=== PATIENT | male | born 1990 | race Caucasian/White ===

== ENCOUNTER 2021-06-16 05:26 | Emergency (ER) | payer OTHER ==
[2021-06-16] MEDS ORDERED: Morphine 4 MG/ML VIAL ONE ×3 (06:21→10:38)
[2021-06-16 06:36] LABS: Band 2 % (5-11); Hemoglobin 12.2 g/dL (14.0-18.0); Lymphocytes 7 % (21-51); MDiff Complete? YES; Mean Corpuscular HGB CONC 31.3 g/dL (32.0-36.0); Mean Corpuscular Volume 76.8 fL (78.0-98.0); Mean Platelet Volume 5.5 fL (7.4-10.4); Microcytosis SLIGHT = 6-15 cells (100X) (0-5/hpf); Monocytes 6 % (0-10); Neutrophil 85 % (42-75); Platelet Count 382 thou/uL (130-400); RBC Distribution Width 12.8 % (11.5-14.5); Red Blood Cell (RBC) Count 5.08 mill/uL (4.70-6.10); White Blood Cell (WBC) Count 29.7 thou/uL (4.8-10.8)
[2021-06-16 06:39] LABS: ALT (SGPT) 38 U/L (8-55); AST (SGOT) 21 U/L (5-34); Albumin 3.7 g/dL (3.5-5.0); Alkaline Phosphatase 63 U/L (40-110); Anion Gap 14 mmol/L (10-20); BUN (Urea Nitrogen) 11 mg/dL (8.9-20.6); Bilirubin, Total 0.4 mg/dL (0.2-1.2); Calc. Creatinine Clearance 0 mL/min (70-130); Calcium 8.7 mg/dL (7.8-10.44); Carbon Dioxide 27 mmol/L (22-29); Chloride 101 mmol/L (98-107); Globulin 2.5 g/dL (2.4-3.5); Glucose 98 mg/dL (70-105); Lipase 351 U/L (8-78); Potassium 3.7 mmol/L (3.5-5.1); Protein, Total 6.2 g/dL (6.0-8.3); Sodium 138 mmol/L (136-145)
[2021-06-16] MEDS ORDERED: Iopamidol 370 76% 100 ML VIAL ONE (07:46)
[2021-06-16] MEDS ORDERED: Ondansetron PF 4 MG/2 ML Vial ONE (08:40)
[2021-06-16] MEDS ORDERED: Piperacillin/Tazobactam 3.375 GM VIAL ONE (09:16)
[2021-06-16] MEDS ORDERED: Sodium Chloride 0.9% 100 ML ONE (09:16)
[2021-06-16 09:53] LABS: SARS-CoV-2 NAA Rapid Test Not Detected (NotDetected)
[2021-06-16] MEDS ORDERED: Sodium Chloride 0.9% 1,000 ML ONE (09:59)
== END 2021-06-16 10:43 | disposition short-term general hospital (02) ==
LOC: MADERS 05:26
DX: K85.90 Acute pancreatitis without necrosis or infection, unspecified (principal); K63.1 Perforation of intestine (nontraumatic); C79.89 Secondary malignant neoplasm of other specified sites; Z20.822 Contact with and (suspected) exposure to COVID-19
CPT/HCPCS: 74177; 80053; 83690; 83735; 83880; 85025; 96365; 96375; 96376; J2270; J2405; J2543; J3490; J7050; Q9967; U0002